=== PATIENT | male | born 1945 | race Caucasian/White ===

== ENCOUNTER → 2019-04-30 | Outpatient (CLI) | payer MEDICARE, OTHER ==
[~2019-04-30] MED LIST: ASPIR-LOW81 MG PO; FISH OIL CONC1000 MG PO; MVI; NIACIN1000 MG PO
== END ==
LOC: ZCOL.LAB 17:30
DX: Z01.89 Encounter for other specified special examinations (principal)

== ENCOUNTER → 2019-10-22 | Outpatient (CLI) | payer OTHER, MEDICARE | LOC: COL.RAD 10:10 | DX: C24.0 Malignant neoplasm of extrahepatic bile duct (principal); D61.818 Other pancytopenia; R91.8 Other nonspecific abnormal finding of lung field; K76.0 Fatty (change of) liver, not elsewhere classified; N40.0 Benign prostatic hyperplasia without lower urinary tract symptoms; Z98.890 Other specified postprocedural states | CPT/HCPCS: Q9967 ==

== ENCOUNTER 2021-09-29 08:30 | Observation (INO) | payer OTHER ==
[~2021-09-29] VITALS: Ht 188 cm; Wt 83.8 kg
[2021-09-29] MEDS ORDERED: PRINZIDE 12.5 M1 TAB PO (09:36)
[2021-09-29] MEDS ORDERED: K-DUR20 MEQ PO (09:37)
[2021-09-29] MEDS ORDERED: IRON TABLETS325 MG PO (09:37)
[2021-09-29] MEDS ORDERED: FLOMAX 0.40.4 MG/CAP PO (09:37)
[2021-09-29] MEDS ORDERED: MULTI VITAMINS1 TAB PO (09:38)
[2021-09-29] MEDS ORDERED: VITAMIND3 5000 PO (09:38)
[2021-09-29 09:45] VITALS: BP 122/71; PULSE 56; TEMP 97.7
[2021-09-29] MEDS ORDERED: PYRIDIUM 100MG100 MG PO (12:36)
--- NOTE | 2021-09-29 13:35 | NUR ---
Received report from MOISÉS Wild. Patient had a TURP and is stable. 20 gauge in right hand. Has an allergy to Lipitor. Patient had a spinal and is still numb and will be for awhile; no movement in legs. CBI [address]; 40 cc balloon and is running light pink with moderate rate flow. She also reported patient is AO x 3. VS are BP: 120/62, HR: 49, Resp: 16, Temp 97.2, and O2 99% on room air. Patient is sinus verito.
[2021-09-29 14:00] VITALS: BP 126/54; PULSE 53
[2021-09-29 15:00] VITALS: BP 132/77; PULSE 49
[2021-09-29 16:00] VITALS: BP 131/60; PULSE 54
--- NOTE | 2021-09-29 17:51 | NUR ---
PT WAS NOT ON THE FLOOR YET
[2021-09-29 19:35] VITALS: BP 123/63; PULSE 61; TEMP 97.5
[2021-09-30] VITALS (7 sets, daily range): BP systolic 101–124; BP diastolic 49–65; PULSE 58–73; TEMP 97.6–981
--- NOTE | 2021-09-30 03:21 | NUR ---
Pt doing well. CBI running at slow rate with pink tinged output. Fluids INTd as pt is taking in adequate PO. Pt denies any pain or needs, call light within reach.
--- NOTE | 2021-09-30 06:00 | NUR ---
CBI continues to run at slow rate with output being light pink. Pt having no pain complaints. No needs verbalized, call light within reach
--- NOTE | 2021-09-30 07:09 | NUR ---
Report received from MOISÉS Ledezma. Patient is sleeping in bed. Call light and bedside table are within reach. Will continue to monitor patient throughout shift.
--- NOTE | 2021-09-30 10:36 | NUR ---
Initial visit; Patient thanked Cyanide Pot Hardener for looking in on him, offering prayer and God's blessings.
--- NOTE | 2021-09-30 20:30 | NUR ---
PT RESTING IN BED. CBI/FC INTACT. CBI INFUSING SLOW RATE. NO CLOTS. DILUTED DARK RED. PT DENIES PAIN AT THIS TIME.
[2021-10-01 03:11] VITALS: BP 124/48; PULSE 63; TEMP 97.7
--- NOTE | 2021-10-01 07:09 | NUR ---
Report received from MOISÉS Medel. Patient was sleeping in bed. Dr. Wesley came in to see patient and told the nurse the rossi can come out this morning and he was going to discharge the patient today and also for the patient to drink plenty of water. Call light and bedside table are within reach. Will continue to monitor patient throughout shift.
--- NOTE | 2021-10-01 07:20 | NUR ---
This nurse discontinued CBI and removed catheter. Removed 30 cc of air and 250 was in patient's foely bag. Patient tolerated the procedure well.
[2021-10-01 08:00] VITALS: BP 118/50; PULSE 76; TEMP 97.3
[2021-10-01 12:06] VITALS: BP 108/63; PULSE 108; TEMP 97.5
--- NOTE | 2021-10-01 12:07 | NUR ---
This nurse spoke to Dr. Wesley in reference to patient feeling pressure and having 700 cc of urine in bladder. Dr. Wesley instructed me to cath patient with a 20 FR catheter with the curve at the 1200 position.
--- NOTE | 2021-10-01 14:38 | NUR ---
binding bench worker met with patient to discuss discharge plan. Patient's Gemini ([phone]) present at bedside. Patient reports that he is fully independent with his activities of daily living and does not utilize any DME to assist with mobility. Patient states he has no oxygen needs. PCP is Dr. Muse and [facility] with no cost difficulty. reports that they do not have a DPOA-HC established and doesn't feel as if they "need" one. Education provided and still declines on behalf of the patient. Discharge plan: Home with .
--- NOTE | 2021-10-01 14:39 | NUR ---
This nurse irrigated the patient's urine until it ran clear and emptied the Zepeda bag to make sure the urine continues to run clear.
[2021-10-01 15:17] VITALS: BP 110/55; PULSE 78; TEMP 98.8
--- NOTE | 2021-10-01 15:43 | NUR ---
This nurse spoke with Dr. Catalan and his instruction was to keep the patient one more night. This nurse will comply.
--- NOTE | 2021-10-01 19:00 | NUR ---
RECEIVED CHANGE OF SHIFT REPORT FROM DAY SHIFT NURSE
[2021-10-01 19:15] VITALS: BP 116/57; PULSE 72; TEMP 98.4
[2021-10-01 23:00] VITALS: BP 100/52; PULSE 65; TEMP 97.7
[2021-10-02 03:48] VITALS: BP 147/67; PULSE 80; TEMP 97.6
[2021-10-02 03:49] VITALS: BP 107/48; PULSE 68; TEMP 97.9
--- NOTE | 2021-10-02 07:05 | NUR ---
CHANGE OF SHIFT REPORT GIVEN TO DAY SHIFT RNAYANNA. GUZMAN TO DD IN PLACE, DRAINING LIGHT RED WITH SEDIMENT URINARY OUTPUT. PATIENT DENIED ANY CHEST PAIN/SOA/NAUSEA ALL SHIFT AND DENIED NUMBNESS/TINGLING TO EXTREMITIES ALL SHIFT. OBSERVED SMALL AMOUNT BLOODY DRAINAGR AROUND CATHETER AT END OF PENIS INTERMITTENTLY THROUGH THE NIGHT.
--- NOTE | 2021-10-02 08:10 | NUR ---
Patient resting in bed. Dr. Wesley rounded this am. Plan of care reviewed. Patient going to order breakfast & call his for a ride. education to be provided for rossi cares when his is here. Rossi to DD with dark red output with sediment. Int. Will monitor.
[2021-10-02 09:41] VITALS: BP 123/51; PULSE 79; TEMP 97.9
--- NOTE | 2021-10-02 10:45 | NUR ---
Patient ready for discharge home. Patient at bedside & rossi education provided. Patient able to demonstrate how to drain his rossi. He and his have no interest in leg bag teaching. Patient provided with rossi cares & given strict instructions on hygiene & importnace of rossi cares to prevent infection. Patient provided with clean brief, He has an episode of loose stool. Patient not wanting to get dressed, he wanted to wear a hospital gown home. clean one provided. Med list reviewed. Patient aware of follow up appt. Tuesday with voiding trial. they deny questions or concerns. Patient wheeled out with all belongings. Int Dc
[2021-10-03] MEDS ORDERED: BACTRIM DS 8001 TAB PO (21:10)
== END 2021-10-02 12:21 | disposition home or self-care (01) ==
LOC: SDCO 08:30 → SURG 08:30 → EDSTATUS 14:45 → SDCO 09-30 13:27 → SURG 09-30 13:28
PROVIDERS: ADMIT Urology
DX: N40.1 Benign prostatic hyperplasia with lower urinary tract symptoms (principal); R39.12 Poor urinary stream; R39.14 Feeling of incomplete bladder emptying; R97.20 Elevated prostate specific antigen [PSA]; R33.8 Other retention of urine; R35.1 Nocturia; R73.03 Prediabetes; I10 Essential (primary) hypertension; Z79.899 Other long term (current) drug therapy
CPT/HCPCS: OP; A4314; G0378; J0690; J1100; J1885; J2250; J2405; J2704; J3480; J7030

== ENCOUNTER 2021-10-03 18:17 | Emergency (ER) | payer OTHER ==
[~2021-10-03] VITALS: Ht 188 cm; Wt 81.8 kg
[~2021-10-03 18:17] MED LIST changes: +FLOMAX 0.40.4 MG/CAP PO; +IRON TABLETS325 MG PO; +K-DUR20 MEQ PO; +MULTI VITAMINS1 TAB PO; +PRINZIDE 12.5 M1 TAB PO; +PYRIDIUM 100MG100 MG PO; +VITAMIND3 5000 PO
[2021-10-03 19:31] LABS: BASO % 0.2 % (0.0-2.0); GRAN # 19.2 K/mm3 (1.4-6.5); LYMPH # 0.6 K/mm3 (1.2-3.4); MEAN CELL VOLUME 89 fl (80.0-100.0); MEAN CORPUSCULAR HGB CONC 34 g/dl (33.0-37.0); MEAN PLATELET VOLUME 13.3 fl (7.4-10.4); MONO # 1.3 K/mm3 (0.1-0.6); MONO % 6.2 % (1.7-9.3); PLATELET COUNT 145 K/mm3 (130-400); RED BLOOD COUNT 2.79 M/mm3 (4.20-5.60); REDCELL DISTRIBUTION WIDTH-CV 12.1 % (11.5-14.5)
[2021-10-03 19:33] LABS: HEMATOCRIT 24.8 % (42.0-52.0); HEMOGLOBIN 8.5 g/dl (13.5-18.0); MEAN CORPUSCULAR HEMOGLOBIN 30 pg (27.0-31.0)
[2021-10-03 19:45] LABS: ALBUMIN 2.9 gm/dL (3.4-4.8); BILIRUBIN,TOTAL 1.1 mg/dL (0.2-1.2); CALCIUM 7.9 mg/dL (8.4-10.2); CREATININE, serum 1.22 mg/dL (0.72-1.25); POTASSIUM 3.8 mmol/L (3.5-4.5); TOTAL PROTEIN 5.9 gm/dL (6.2-8.1)
[2021-10-03 19:51] LABS: TROPONIN-I 0.011 ng/mL (0.00-0.033)
[2021-10-03 20:39] LABS: COLLECTION METHOD CATHETER
[2021-10-03 20:51] LABS: MUCOUS Present (NOT PRESENT); PH 5 (5-8); SQUAMOUS EPITHELIAL None Seen /hpf (0-10); URINE APPEARANCE Cloudy (CLEAR/HAZY); URINE BACTERIA Many (NONE SEEN); URINE BILIRUBIN Negative (NEGATIVE); URINE BLOOD 3+ (NEGATIVE); URINE COLOR Red (YELLOW); URINE GLUCOSE Negative (NEGATIVE); URINE KETONE Negative (NEGATIVE); URINE LEUKOCYTE ESTERASE 1+ (NEGATIVE); URINE NITRATE Positive (NEGATIVE); URINE PROTEIN(semi-quant) 2+ (NEGATIVE); URINE RBC >50 /hpf (0-2); URINE UROBILINOGEN >=4.0 mg/dL (NEGATIVE)
[2021-10-03] MEDS ORDERED: BACTRIM DS 8001 TAB PO (21:10)
[2021-10-03 21:36] VITALS: BP 114/55; PULSE 77; TEMP 98.3
== END 2021-10-03 22:15 | disposition home or self-care (01) ==
LOC: COL.ER 18:17
PROVIDERS: Emergency Medicine
DX: N39.0 Urinary tract infection, site not specified (principal); D72.829 Elevated white blood cell count, unspecified; E87.1 Hypo-osmolality and hyponatremia; I10 Essential (primary) hypertension; N40.1 Benign prostatic hyperplasia with lower urinary tract symptoms; Z79.899 Other long term (current) drug therapy
CPT/HCPCS: J0696; J7030

== ENCOUNTER 2022-03-19 05:22 | Day surgery (SDC) | payer OTHER ==
[~2022-03-19] VITALS: Ht 188 cm; Wt 69.1 kg
[~2022-03-19 05:22] MED LIST changes: +BACTRIM DS 8001 TAB PO
[2022-03-19 07:01] VITALS: BP 100/47; PULSE 52; TEMP 97.1
[2022-03-19 08:10] VITALS: BP 105/54; PULSE 67; TEMP 97.6
[2022-03-19] MEDS ORDERED: NORCO 325 MG-51 TAB PO (08:10)
[2022-03-19 08:25] VITALS: BP 131/63; PULSE 67
--- NOTE | 2022-03-19 08:25 | NUR ---
PT TOLERATING MUFFIN, APPLESAUCE, AND JUICE. PT DENIES ANY OTHER NEEDS AT THIS TIME. WILL CONTINUE TO MONITOR.
[2022-03-19 08:40] VITALS: BP 132/64; PULSE 60
--- NOTE | 2022-03-19 08:40 | NUR ---
PT CONTINUES TO DENY ANY PAIN OR DISCOMFORT. PT STATES HE IS READY FOR DISCHARGE.
--- NOTE | 2022-03-19 08:50 | NUR ---
IV DC'D. PT TOLERATED WELL.
--- NOTE | 2022-03-19 09:00 | NUR ---
DISCHARGE EDUCATION COMPLETED WITH PT AND HIS . THEY VERBALIZED UNDERSTANDING OF HOME AND FOLLOW UP CARE. ALL QUESTIONS ANSWERED. DISCHARGE PAPERWORK GIVEN TO PT.
--- NOTE | 2022-03-19 09:08 | NUR ---
PT TO BAY 1 PER CART FROM OR. RECEIVED REPORT FROM CUSTOMER SUCCESS INTERN AND CONTENT STRATEGY LEAD. PT DENIES ANY PAIN OR DISCOMFORT. PT REQUESTING JUICE. CALL LIGHT WITHIN REACH. DENIES ANY OTHER NEEDS AT THIS TIME.
--- NOTE | 2022-03-19 09:10 | NUR ---
PT OFF UNIT PER WHEELCHAIR. PT DISCHARGE TO HOME WITH PER PERSONAL VEHICLE.
== END 2022-03-19 09:10 | disposition home or self-care (01) ==
LOC: SDCO 05:22
DX: C22.1 Intrahepatic bile duct carcinoma (principal)
CPT/HCPCS: C1788; J0690; J1644; J2704; J3010; J7120

== ENCOUNTER → 2022-05-27 | Outpatient (CLI) | payer OTHER ==
[~2022-05-27] MED LIST changes: +B-121000 MCG PO; +COLESTID 1GM1 G PO; +COMPLETE SENIOR1 TA1 PO; +IMODIUM A-D2 MG PO; +IRON; +NORCO 325 MG-51 TAB PO; +VIT D3; +VITAMIN B12 1541 TAB PO; +[UNRECOGNIZED DRUG - CODE] PO
== END ==
LOC: COL.RAD 07:17
DX: C24.0 Malignant neoplasm of extrahepatic bile duct (principal)

== ENCOUNTER 2022-06-18 09:59 | Day surgery (SDC) | payer OTHER ==
[~2022-06-18] VITALS: Ht 188 cm; Wt 72.6 kg
[~2022-06-18 09:59] MED LIST changes: -B-121000 MCG PO; -COLESTID 1GM1 G PO; -COMPLETE SENIOR1 TA1 PO; -IMODIUM A-D2 MG PO; -IRON; -VIT D3; -VITAMIN B12 1541 TAB PO; -[UNRECOGNIZED DRUG - CODE] PO
[2022-06-18] MEDS ORDERED: B-121000 MCG PO (11:09)
[2022-06-18] MEDS ORDERED: [UNRECOGNIZED DRUG - CODE] PO (11:10)
[2022-06-18] MEDS ORDERED: COLESTID 1GM1 G PO (11:11)
[2022-06-18] MEDS ORDERED: IRON (11:12)
[2022-06-18] MEDS ORDERED: K-DUR20 MEQ PO (11:13)
[2022-06-18] MEDS ORDERED: FLOMAX 0.40.4 MG/CAP PO (11:14)
[2022-06-18] MEDS ORDERED: VITAMIN B12 1541 TAB PO (11:15)
[2022-06-18] MEDS ORDERED: VIT D3 (11:17)
[2022-06-18] MEDS ORDERED: IMODIUM A-D2 MG PO (11:18)
[2022-06-18] MEDS ORDERED: COMPLETE SENIOR1 TA1 PO (11:19)
[2022-06-18 11:35] VITALS: BP 107/52; PULSE 62; TEMP 97.6
[2022-06-18 12:10] VITALS: BP 114/56; PULSE 53; TEMP 96.9
[2022-06-18 12:25] VITALS: BP 114/56; PULSE 59
[2022-06-18 12:40] VITALS: BP 119/62; PULSE 55
--- NOTE | 2022-06-18 13:24 | NUR ---
1210 - PT arrives from procedure drowsy but oriented. PT assisted w/ ambulation from cart to chair 2:1. Monitors applied and vitals obtained. PT denies pain and nasuea. Warm blankets applied. Visitor is present. Will monitor per intervals. PT oriented to room and call mendoza, within reach. 1225 - VSS. PT has finished snack and drink. has spoken to PT. PT expressed desire to be discharged. Call mendoza remains within reach. 1240 - Vitals obtained. IV discontinued. Catheter tip intact. Pressure bandage applied. NO redness or swelling noted. DC instructions and educatonal material reveiwed w/ PT, who verbalized understanding and signed the related paperwork. Questions answered to PT satisfaction. PT refused RN assistance changing into personal clothes, call mendoza remains within reach if needed. 1300 - PT dismissed from endo via wheelchair to the PT entrence by Dolly. PT has DC packet and personal belonings; PT was transferred into the care of Gemini, who is driving private car.
== END 2022-06-18 13:00 | disposition home or self-care (01) ==
LOC: SDCO 09:59
DX: R19.7 Diarrhea, unspecified (principal); E11.9 Type 2 diabetes mellitus without complications
CPT/HCPCS: J2704; J3010; J7030

== ENCOUNTER → 2022-07-26 | Outpatient (CLI) | payer OTHER ==
[~2022-07-26] MED LIST changes: +B-121000 MCG PO; +COLESTID 1GM1 G PO; +COMPLETE SENIOR1 TA1 PO; +IMODIUM A-D2 MG PO; +IRON; +VIT D3; +VITAMIN B12 1541 TAB PO; +[UNRECOGNIZED DRUG - CODE] PO
== END ==
LOC: COL.RAD 11:00
DX: Z08 Encounter for follow-up examination after completed treatment for malignant neoplasm (principal); Z85.09 Personal history of malignant neoplasm of other digestive organs; J90 Pleural effusion, not elsewhere classified; R18.8 Other ascites; N20.1 Calculus of ureter; R59.0 Localized enlarged lymph nodes